=== PATIENT | female | born 1995 | race Caucasian/White ===

== ENCOUNTER 2018-11-05 00:13 | Emergency (ER) | payer OTHER ==
[~2018-11-05] VITALS: Ht 167.6 cm; Wt 90.6 kg
[~2018-11-05 00:13] MED LIST: PRENAT PO
[2018-11-05 00:18] VITALS: Ht 167.6 cm; Wt 90.6 kg
[2018-11-05] MEDS ORDERED: LIDOCAINE 2% (MDV) 20 ML INJ INJ STA (01:16)
[2018-11-05] MEDS ORDERED: DIPHTH/TET/ACEL PERTUSS (ADULT) 0.5 ML VIAL IM* ONE (01:30)
--- NOTE | 2018-11-05 01:44 | ERD ---
ER Documentation Chief Complaint Chief Complaint R 2ND DIGIT LAC FROM POCKET KNIFE CLOSING ON FINGER HPI This is a 23-year-old female denies significant past medical history presents ED with laceration to right second finger that was sustained after she accidentally cut it on a pocket knife. Patient admits to some bleeding. Denies fever, chills, tingling, numbness, lack sensation, decreased range of motion all other symptoms. No known drug allergies. Unsure if tetanus is up-to-date ROS All systems reviewed and are negative except as per history of present illness. Medications Home Meds Reported Medications Multivit/Min/Fol Ac/Iron/Pren* ( S*) 1 Tab Tab, 1 TAB PO DAILY, TAB 09/28/15 Allergies Allergies: Coded Allergies: No Known Drug Allergies (Verified Allergy, Mild, 01/14/10) PMhx/Soc Medical and Surgical Hx: pt denies Medical Hx History of Surgery: No Anesthesia Reaction: No Hx Neurological Disorder: No Hx Respiratory Disorders: No Hx Cardiac Disorders: No Hx Psychiatric Problems: No Hx Miscellaneous Medical Probl: No Hx Alcohol Use: No Hx Substance Use: No Hx Tobacco Use: No Smoking Status: Never smoker Physical Exam Vitals Vital Signs Date Temp Pulse Resp B/P (MAP) Pulse Ox O2 O2 Flow FiO2 Time Delivery Rate 11/05/18 97.2 110 18 146/89 100 00:18 (108) Physical Exam Const: No acute distress Head: Atraumatic Eyes: Normal Conjunctiva ENT: Normal External Ears, Nose and Mouth. Neck: Full range of motion. No meningismus. Resp: Clear to auscultation bilaterally Cardio: Regular rate and rhythm, no murmur Ext: No cyanosis, or edema Upper Extremity - bilateral: Skin: 1/2 cm laceration to patient's dorsal right second digit Compartments: Soft Motor: Full active range of motion/wrist/hand Sensation: Intact shoulder/pinky/middle finger/thumb web space Bones: Nontender /wrist/hand Snuffbox: Nontender Joints: No effusion Pulses/Perfusion: 2+ radial, Capillary refill < 2 seconds Radial ulnar median nerve tested for sensory motor deficit without any dysfunction Neur: Awake and alert Psych: Normal Mood and Affect Results 24 hrs Current Medications Medications Dose Sig/Ingrid Start Time Status Last (Trade) Ordered Route PRN Stop Time Admin Dose Reason Admin Diphtheria/ 0.5 ml ONCE ONCE 11/05/18 DC 11/05/18 Tetanus/Acell IM* 01:30 01:34 Pertussis 11/05/18 01:31 (Adacel) Lidocaine 20 ml ONCE STAT 11/05/18 DC (Xylocaine INJ 01:16 2% (Mdv) 20 11/05/18 01:17 ml) Procedures/MDM EKG, MONITORS, & DIAGNOSTIC IMAGING: [None] PROCEDURES: Laceration Repair by me: Anesthesia: 1% lidocaine Location: Right second dorsal digit Tendon/Joint/Nerves: No injury Foreign body: None detected after copious irrigation and exploration Technique: 3 Simple Interrupted Sutures Complexity: No subcutaneous sutures/mucosal repair/edge excision Post Closure Length: 1.5 cm Patient's bleeding was easily controlled in the department and there is no indication of anemia. No evidence of compartment syndrome, neurologic injury, vascular injury, open joint, tendon laceration, or foreign body. Patient is appropriate for outpatient follow up. 48 hour wound check. Scar minimization instructions given. ER COURSE: The patient was stable throughout ED course. I kept the patient and/or family informed of laboratory and diagnostic imaging results throughout the emergency room course. The patient was promptly evaluated and a treatment plan was devised based on H&P and other data. This plan was discussed with the patient who agreed and had no further questions or concerns prior to discharge. MEDICAL DECISION MAKING: Laceration was repaired in ED and instructions for post care were discussed. No evidence of compartment syndrome, neurologic injury, vascular injury, open joint, tendon laceration, fracture, dislocation, or foreign body. Patient's vitals are stable and pt can be managed with close out patient follow up. Advised patient to return to ED or to be seen by primary care for a 48 hour wound check. Pt will also need to return to ED or be seen by primary care provider to have sutures removed in 7-9 days. Return to ED with any worsening symptoms and if patient starts experiencing fever, chills, purulent drainage, warmth, swelling at laceration site this may be indications that wound has become infected and patient may need antibiotics. DISPOSITION PLAN: We discussed follow up with the patient's primary care doctor within 24 to 48 hours. Patient counseled regarding my diagnostic impression and care plan. Prior to discharge all questions answered. Pt agrees with treatment plan and understands strict return precautions. Precautionary instructions provided including instructions to return to the ER if not improving or for any worsening or changing symptoms or concerns. SPECIALIST FOLLOW UP RECOMMENDED: None Patient has been advised to follow up with primary care in 1-2 days. Disclaimer: Inadvertent spelling and grammatical errors are likely due to EHR/dictation software use and do not reflect on the overall quality of patient care. Also, please note that the electronic time recorded on this note does not necessarily reflect the actual time of the patient encounter. Departure Diagnosis: Primary Impression: Finger laceration Encounter type: initial encounter Finger: index finger Damage to nail status: without damage Foreign body presence: without foreign body Laterality: right Qualified Codes: S61.210A - Laceration without foreign body of right index finger without damage to nail, initial encounter Condition: Stable Patient Instructions: Laceration, All Referrals: [facility] YOU HAVE RECEIVED A MEDICAL SCREENING EXAM AND THE RESULTS INDICATE THAT YOU DO NOT HAVE A CONDITION THAT REQUIRES URGENT TREATMENT IN THE EMERGENCY DEPARTMENT. FURTHER EVALUATION AND TREATMENT OF YOUR CONDITION CAN WAIT UNTIL YOU ARE SEEN IN YOUR DOCTORS OFFICE WITHIN THE NEXT 1-2 DAYS. IT IS YOUR RESPONSIBILITY TO MAKE AN APPOINTMENT FOR FOLOW-UP CARE. IF YOU HAVE A PRIMARY DOCTOR --you should call your primary doctor and schedule an appointment IF YOU DO NOT HAVE A PRIMARY DOCTOR YOU CAN CALL OUR PHYSICIAN REFERRAL HOTLINE AT IF YOU CAN NOT AFFORD TO SEE A PHYSICIAN YOU CAN CHOSE FROM THE FOLLOWING [facility] [address] [facility]. [facility] [address] [facility] [facility] [address] [facility] [facility] [address]. [facility] [address] [facility]. [facility] [address] Additional Instructions: Patient advised to return to the ED immediately for new or worsening symptoms. Patient advised to follow up with primary care provider in the next 24-48 hours. Patient verbalized understanding and agrees with treatment plan and course of action. If patient has no primary care they may follow up with one of the [facility] clinics listed on the following page or one of the options listed below [facility] [address] [place] [address] or [facility] [address] [place] [address] or [facility] [address] [place] [address] RICH LEONARDO PA-C Nov 05, 2018 01:44
[2018-11-05 01:57] VITALS: BP 123/78; PULSE 88; RESP 16
== END 2018-11-05 01:59 | disposition home or self-care (01) ==
LOC: FTE 00:13
DX: S61.210A Laceration without foreign body of right index finger without damage to nail, initial encounter (principal); W26.0XXA Contact with knife, initial encounter; Y92.9 Unspecified place or not applicable; Z23 Encounter for immunization
CPT/HCPCS: 12001; 90471; 90715; Z7502